=== PATIENT | male | born 1970 | race Caucasian/White ===

== ENCOUNTER 2020-04-09 15:11 | Outpatient (REF) | payer OTHER, SELFPAY | END 2020-04-09 15:12 | disposition home or self-care (01) | LOC: HO.LNP 15:11 | PROVIDERS: Visit Provider Internal Medicine | DX: Z20.828 Contact with and (suspected) exposure to other viral communicable diseases (principal) | CPT/HCPCS: U0003 ==

== ENCOUNTER 2020-06-11 10:03 | Day surgery (SDC) | payer OTHER, SELFPAY ==
[2020-06-08 09:46] VITALS: BMI 31.4
--- NOTE | 2020-06-09 14:03 | HO.ANESPROP2 ---
Documented by User: Conchis Brandt 06/09/20 14:04 HPI - Anesthesia Eval Consult details Narrative: 49yo M for Colonoscopy PMFSH Past Medical History Medical History Elevated cholesterol Hx of skin cancer, basal cell Lab test negative for COVID-19 virus Surgical History Surgical History Hx of arthroscopy of right knee Hx of vasectomy Social History Social History Are you a primary child daycare worker to a significant other at home: No Do you presently have visiting nurse or other home services: No Alcohol intake: never Smoking Status: Never smoker Use of substances other than those prescribed or required for medical reasons: No Have you been hit, kicked, punched, or otherwise hurt by someone within the past year? If so, by whom?: No Advance Directives Information Provided: No Recently lost weight without trying: No Meds Allergies Allergy/AdvReac Type Severity Reaction Status Date / Time No Known Allergies Allergy Verified 06/08/20 09:50 Home Medications Medication Instructions Recorded Confirmed Type simvastatin 1 tab PO DAILY 06/08/20 06/08/20 History Exam Exam Date and Time: June 09, 2020 1403 Height,Weight and Vital Signs: Height 5 ft 9 in Weight 96.615 kg Assessment and Plan Assessment Anesthesia Assessment: Chart Reviewed Documented by User: Alyssa Resendez 06/11/20 10:50 [facility] Past Medical History Medical History Elevated cholesterol Hx of skin cancer, basal cell Lab test negative for COVID-19 virus Family History Family history of problems with anesthesia: No Surgical History Surgical History Hx of arthroscopy of right knee Hx of vasectomy History of Problems with Anesthesia: No Social History Social History Are you a primary child daycare worker to a significant other at home: No Do you presently have visiting nurse or other home services: No Alcohol intake: never Smoking Status: Never smoker Use of substances other than those prescribed or required for medical reasons: No Have you been hit, kicked, punched, or otherwise hurt by someone within the past year? If so, by whom?: No Advance Directives Information Provided: No Recently lost weight without trying: No Meds Allergies Allergy/AdvReac Type Severity Reaction Status Date / Time No Known Allergies Allergy Verified 06/08/20 09:50 Home Medications Medication Instructions Recorded Confirmed Type simvastatin 1 tab PO DAILY 06/08/20 06/08/20 History Exam Height,Weight and Vital Signs: Vital Signs Temp Pulse Resp BP Pulse Ox 06/11/20 10:36 97.6 F 61 18 128/84 96 Airway Mallampati Class: I TM Dist: >3cm Neck ROM: Full Partial: Upper and Lower Heart: RRR Lungs: CTAB Assessment and Plan Assessment Anesthesia Assessment: Anesthesia Plan Discussed and Chart Reviewed Final Anesthetic Review NPO: Yes ASA Class: II Final Preanesthetic Review: No Changes in Pt Med Stat, Meds/Allgs Chart Reviewed, Consent Obtained/Reviewed and Anes Risks/Benef Reviewed Patient Risk: Low Procedure Risk: Low Assessment/Block/Sedation in SS: Assess/Block/Sedation-SS Anesthetic Plan Anesthetic Plan: MAC: Disposition: Standard PACU
[2020-06-11 10:36] VITALS: BP 128/84; PULSE 61; RESP 18; TEMP 36.4; O2SAT 96
[2020-06-11] MEDS: Lactated Ringers 1,000 ML 100 ML IVCONT (10:54)
--- NOTE | 2020-06-11 10:56 | MHC.SHP ---
Pre-Procedural Eval Section A The patient is an INPATIENT: No Changes since office visit: No Cold of Flu in the past 2 weeks, No New Medical Problems, No Changes in Medication and No Patient answered all questions The History & Physical has been completed within 30 days and I have reviewed it.: Yes Section B Chief Complaint: screening Allergies: Allergies Allergy/AdvReac Type Severity Reaction Status Date / Time No Known Allergies Allergy Verified 06/08/20 09:50 Plan I have reviewed the history and physical and performed a pertinent physical examination on my patient. No changes have occurred unless specified.
--- NOTE | 2020-06-11 11:17 | PM.OP ---
Brief Operative Note Date of Service: 06/11/20 Pre-op diagnosis: screening Post-op diagnosis: same Procedure: colonoscopy Surgeon: Norman Hankins Anesthesia: MAC Estimated blood loss (mL): 0 Pathology: none sent Condition: stable Disposition: PACU
[2020-06-11 11:18] VITALS: BP 110/60; PULSE 64; RESP 16; TEMP 36.1; O2SAT 96
[2020-06-11 11:35] VITALS: BP 109/65; PULSE 64; RESP 16; TEMP 36.1; O2SAT 96
--- NOTE | 2020-06-11 11:39 | OP_ITS ---
cc: Cristian Pierson MD~ SURGEON: Norman Hankins MD INDICATIONS: Colon cancer screening. PREOPERATIVE DIAGNOSIS: POSTOPERATIVE DIAGNOSIS: PROCEDURE PERFORMED: Colonoscopy to the terminal ileum. ESTIMATED BLOOD LOSS: COMPLICATIONS: ANESTHESIA: Medications, monitored anesthesia care. ASSISTANTS: SPECIMENS: DESCRIPTION OF PROCEDURE: History and physical was performed. The risks and benefits of the procedure were explained to the patient. Informed consent was obtained. The patient was placed in left lateral decubitus position. A digital rectal exam was performed and was found to be normal. The Olympus pediatric video colonoscope was introduced into the rectum and advanced to the cecum without difficulty. The cecum was identified by transillumination, palpation, identification of ileocecal valve. Examination was performed. The scope was removed. He tolerated the procedure well and was taken to the recovery area in stable condition. FINDINGS: The terminal ileum was examined and it appeared normal. Visualized colonic mucosa was normal. Quality of prep was good. There was minimal sigmoid diverticulosis. Retroflexed examination showed hypertrophic anal papillae. The quality of prep was good. IMPRESSION: Normal colonoscopy. RECOMMENDATIONS: 1. Follow up as needed. 2. Repeat colonoscopy is recommended in 10 years for average risk individuals. MD JEN Bledsoe/JOMAR / [id number] MTDD
--- NOTE | 2020-06-11 12:27 | HO.POSTANES ---
Post Anesthesia Evaluation Post Anesthesia Evaluation Vital Signs: Vital Signs Temp Pulse Resp BP Pulse Ox 06/11/20 11:35 97 F 64 16 109/65 96 06/11/20 11:18 97 F 64 16 110/60 96 06/11/20 10:36 97.6 F 61 18 128/84 96 Anesthesia: Monitored Mental Status: Awake Pain Control: Satisfactory Nausea/Vomiting: None Hydration: Adequate Anesthesia-Related Issues: No Anes. Related Issues
== END 2020-06-11 12:24 | disposition home or self-care (01) ==
PROVIDERS: PCP Internal Medicine; Visit Provider Internal Medicine Gastroenterology
PROC: 0DJD8ZZ Inspection of Lower Intestinal Tract, Via Natural or Artificial Opening Endoscopic (ICD-10-PCS; CPT 45378; principal; 2020-06-11 11:10)
DX: Z12.11 Encounter for screening for malignant neoplasm of colon (principal)
CPT/HCPCS: 45378

== ENCOUNTER 2021-11-25 10:55 | Outpatient (REF) | payer OTHER, SELFPAY ==
--- NOTE | ~2021-11-25 | XR_ITS ---
EXAMINATION: XR CHEST CLINICAL INFORMATION: SOB COMPARISON: None TECHNIQUE: 2 views of the chest were obtained. FINDINGS: No significant abnormality is noted involving the heart, lungs, mediastinum, bony thorax or soft tissues. XR/XR chest 2V IMPRESSION: Unremarkable chest exam
[2021-11-25 13:35] LABS: MANUAL DIFF FLAG NO
[2021-11-25 13:41] LABS: Basophils Percent Auto 0.3 % (0-2); Eosinophils Percent Auto 0.4 % (0-4); Hemoglobin 14.4 g/dl (14.0-18.0); Imm Gran Abs Auto 0.02 X10*3/uL (0.00-0.03); Imm Gran Pct Auto 0.3 % (0.0-0.4); Lymphocytes Absolute Auto 1.4 X10*3/uL (1.2-4.9); Lymphocytes Percent Auto 19.1 % (20-40); Mean Corpuscular HGB Conc 34.3 g/dl (31.0-36.0); Mean Corpuscular Hemoglobin 31.1 pg (27.0-33.0); Mean Corpuscular Volume 90.7 fL (80.0-98.0); Mean Platelet Volume 9.4 fL (9.4-12.4); Monocytes Percent Auto 13.8 % (2-11); Neutrophils Percent Auto 66.1 % (45-73); Platelet Count 190 X10*3/uL (160-400); Red Blood Count 4.63 X10*6/uL (4.60-5.80); Red Cell Distribution Width 12.9 % (11.0-16.0); White Blood Count 7.5 X10*3/uL (4.8-10.8)
[2021-11-25 13:52] LABS: Alanine Aminotransferase 35 U/L (0-40); Albumin Level 4.5 g/dL (3.5-5.0); Alkaline Phosphatase 70 U/L (39-117); Anion Gap 12 (12-20); Aspartate Amino Transferase 23 U/L (5-37); Bilirubin Total 0.7 mg/dL (0.0-1.0); Blood Urea Nitrogen 15 mg/dL (9-16); C Reactive Protein 0.91 mg/dL (< or = 0.50); Carbon Dioxide 25 mmol/L (22-29); Chloride 105 mmol/L (96-108); Estimated Glomerular Filt Rate > 60; Glucose Random 94 mg/dL (60-115); Potassium 4.2 mmol/L (3.3-5.1); Sodium 138 mmol/L (135-145); Total Protein 7.2 g/dL (6.5-8.0)
== END 2021-11-25 10:56 | disposition home or self-care (01) ==
LOC: HO.10HDL 10:55
PROVIDERS: Visit Provider Internal Medicine
DX: R06.02 Shortness of breath (principal); E78.00 Pure hypercholesterolemia, unspecified; Z86.16 Personal history of COVID-19
CPT/HCPCS: 36415; 71046; 80053; 82550; 85025; 86140

== ENCOUNTER 2021-11-29 06:47 | Outpatient (REF) | payer OTHER, SELFPAY ==
[2021-11-29 07:38] LABS: D Dimer High Sensitivity 237 NG/ML
== END 2021-11-29 06:48 | disposition home or self-care (01) ==
LOC: HO.LAB 06:47
PROVIDERS: PCP Internal Medicine; Visit Provider Internal Medicine
DX: R06.02 Shortness of breath (principal)
CPT/HCPCS: 36415; 85379

== ENCOUNTER 2021-12-02 13:48 | Outpatient (REF) | payer OTHER, SELFPAY ==
--- NOTE | 2021-12-02 | PFT_ITS ---
FLOWS: FEV1 of 92% of predicted at 3.42 L. FVC 85% of predicted at 4.05 L. FEV1 to FVC ratio of 0.84. No bronchodilator response. LUNG VOLUMES: Total lung capacity 83% of predicted at 5.57 L. Residual volume 74% of predicted at 1.49 L. Slow vital capacity 87% of predicted at 4.08 L. Expiratory reserve volume 34% of predicted at 0.48 L. Diffusion capacity is normal. IMPRESSION: No obstructive or restrictive ventilatory defect. Decreased expiratory reserve volume suggests extrathoracic restriction likely secondary to abdominal obesity. Fred Mcginnis MD AP/MODL / [id number]
== END 2021-12-02 13:49 | disposition home or self-care (01) ==
LOC: HO.RESP 13:48
PROVIDERS: PCP Internal Medicine; Visit Provider Internal Medicine
DX: R06.02 Shortness of breath (principal)
CPT/HCPCS: 94060; 94727; 94729

== ENCOUNTER → 2022-01-16 09:16 | Outpatient (REF) | payer OTHER, SELFPAY ==
--- NOTE | 2022-01-16 09:30 | CA_ITS ---
Transthoracic Echocardiogram Patient (Last, First, Middle): Casa Velazquez R Gender: Male Date of : 1970 Age: 51 Procedure Date: 01/16/2022 Procedure Type: Transthoracic Echocardiogram Location: OP Height: 172.72 cm Weight: 94.8 kg BSA: 2.08 m2 Heart Rate: 56 bpm BP: 120 / 80 mmHg Marketing And Development Coordinator: RICARDO Referring MD: Gurwinder Pierson MD Foam Rubber Molder: Raffi Pulido MD Symptoms: R06.02 SHORTNESS OF BREATH Study Quality: Adequate ECG Rhythm: Bradycardia Conclusions: - Essentially normal study Findings Left Ventricle Normal left ventricular size, thickness, and systolic function. The visually estimated ejection fraction is between 60-65%. Spectral Doppler is indicative of a normal filling pattern. Right Ventricle Normal right ventricular cavity size and systolic function. Atria Both atria are normal in size. There is lipomatous hypertrophy of the interatrial septum. Aortic Valve Normal aortic valve structure and function. There is no aortic valve stenosis. There is no aortic valve regurgitation. Mitral Valve Normal mitral valve structure and function. There is no mitral valve regurgitation. There is no mitral valve stenosis. Pulmonic Valve The pulmonic valve is likely normal. Tricuspid Valve Normal tricuspid valve structure. There is trace tricuspid valve regurgitation. Normal right atrial pressure. Great Vessels All visible segments of the aorta are normal in size. The pulmonary artery was not well visualized. Venous The inferior vena cava is normal in size and collapses greater than 50% with inspiration. Pericardium/Pleural There is no evidence of pericardial effusion. Measurements 2D Linear Measurements IVSd: 0.98 0.6-0.9/0.6-1.0 cm LVIDd: 4.65 3.9-5.3/4.2-5.9 cm LVIDd Index: 2.24 2.4-3.2/2.2-3.1 cm/m2 LVIDs: 3.11 2.0-3.6 cm LVPWd: 1.07 0.7-1.1 cm LA Diam: 3.60 2.7-3.8/3.0-4.0 cm LAIDs Index: 1.73 1.5-2.3 cm/m2 LV Mass: 207.67 67-162/88-224 g LV Mass Index: 99.84 43-95/49-115 g/m2 LVOT Diam: 2.10 3.0+(-)1.3 cm 2D Systolic Function EF 4C: 56.70 >55% EF 2C: 55.60 >55% Mitral Valve MV Pk E: 0.77 MV PK A: 0.63 MV Decel Time: 241.00 E/A: 1.20 E'Lateral: 10.60 E'Medial: 8.16 E/E' Med: 9.40 E/E' Lat: 7.30 PHT: 71.00 MVA PHT: 3.10 Decel Pleasants: 3.20 Aortic Valve AoV Pk Yo: 1.14 AoV Mn Yo: 0.77 AoV VTI: 0.26 AoV Pk Grad: 5.00 Aov Mn Grad: 3.00 LALITO Cont.VTI: 2.40 LVOT LVOT Pk Yo: 0.88 LVOT Mn Yo: 0.58 LVOT VTI: 0.18 LVOT Pk Grad: 3.00 LVOT Mn Grad: 2.00 LVOT Diam: 2.10 LVOT Area: 3.46 Diastolic Function MV Pk E: 0.77 MV Pk A: 0.63 E/A: 1.20 E'Medial: 8.16 E/E' Med: 9.40 E' Laterial: 10.60 E/E' Lat: 7.30 Right Ventricle TAPSE (mm): 21.70 TVS' Yo: 12.90 Tricuspid Valve RA Press: 3.00 Great Vessels Aorta Sinus of Valsalva: 3.10 2.0-3.5 cm Ao Asc: 2.80 2.1-3.4 cm Pulmonary Valve PV Pk Yo: 1.03 Peak PV Grad: 4.00 Updated in Other Vendor System with Status of Final Raffi Pulido MD electronically signed on 01/16/2022 3:07:27 PM with status of Final
== END ==
LOC: HO.CARD 09:16
PROVIDERS: PCP Internal Medicine; Visit Provider Internal Medicine
DX: R06.02 Shortness of breath (principal)
CPT/HCPCS: 93306

== ENCOUNTER 2024-02-18 10:53 | Outpatient (AMB) | payer OTHER, SELFPAY ==
--- NOTE | 2024-02-18 10:54 | MHC.OFFWIV ---
Intake Vital Signs 02/18/24 10:55 Height 5 ft 8 in Weight 225 lb BMI 34.2 BP 124/80 Blood Pressure Location Rt brachial Position Sitting Pulse 69 Pulse Source Pulse Oximeter Pulse Oximetry (%) 97 Oxygen Delivery Method Room Air Intake Visit Reasons: EP-rt ear block and irritated Intake Note: Patient here for right ear pain that has been present for a few days and yesterday the pain worsened and feels blocked. Patient Tobacco Use Status: Never used Tobacco Allergies No Known Allergies Allergy (Verified 02/18/24 10:56) Do you need a note to return to daycare/school/sports/work: No HPI EP-rt ear block and irritated HPI Details This note is constructed using voice recognition software. While every effort has been made to ensure accuracy, drapery maker errors may have been included. The patient is a 53 year old male who presents to the clinic today with right-sided ear pain for the past several days. Notes a chronic history ear infections, including medial and external, as well as cerumen impaction. He has been treating this for many years, and does over the home irrigation of the ear. He went to perform an irrigation of the ear, noted that it was a bit more painful than normal. He denies fever, chills, cough, shortness of breath, or other URI symptoms. [facility] Medical History Elevated cholesterol Hx of skin cancer, basal cell Lab test negative for COVID-19 virus Surgical History Hx of arthroscopy of right knee Hx of vasectomy Social History Are you a primary progressive care unit registered nurse to a significant other at home: No Do you presently have visiting nurse or other home services: No Alcohol intake: never Patient Tobacco Use Status: Never used Tobacco Review of Systems Const All systems reviewed & are unremarkable except as noted in HPI and below Physical Exam Vital Signs: Last Vital Signs Pulse 69 02/18/24 10:55 BP 124/80 02/18/24 10:55 Pulse Ox 97 02/18/24 10:55 Oxygen Delivery Method Room Air 02/18/24 10:55 BMI result Body Mass Index 34.2 Const General: cooperative, healthy appearing, comfortable and no acute distress Orientation/consciousness: patient oriented x3 HEENT Other: External ear canal on right with minimal erythema and inflammation. Head: Yes normal to inspection, Yes No palpable skull fracture present and Yes normocephalic Ears: hearing grossly normal bilaterally, TM's normal bilaterally and mastoids normal (no TTP) bilaterally General nose exam: Normal external nose present Face and sinus: Yes normal facial exam Mouth: Normal oral and palatal mucosa present Teeth and gingiva: dentition normal Throat: Yes posterior oropharynx normal Eyes General: appearance normal, both eyes and all related structures Neck Neck: Yes normal visual inspection, Yes full ROM, Yes no lymphadenopathy, Yes no meningeal signs, Yes trachea midline and Yes supple Resp Effort & Inspection: normal respiratory effort and able to speak in complete sentences Skin General skin exam: no rashes or lesions noted Neuro General: patient oriented x3 and no meningeal signs Assessment & Plan Assessment & Plan (1) Otitis externa: Code(s): H60.90 - Unspecified otitis externa, unspecified ear Qualifiers: Otitis externa type: swimmer's ear Chronicity: acute Laterality: right Qualified Code(s): H60.331 - Swimmer's ear, right ear Plan: Drops sent to requested pharmacy. Advised [id number] treatment for pain management. Follow-up as needed with worsening or failure to resolve. Plan See above for full details and plan. Medications: New hydrocortisone-acetic acid 1-2 % 4 drps otic (ear) right TID 7 days 10 mL 0RF Coding Level of Care Code Est Pt Level 3 (77645) Diagnoses Acute swimmer's ear of right side H60.331 Otitis externa type: swimmer's ear Chronicity: acute Laterality: right
[2024-02-18 10:55] VITALS: BP 124/80; PULSE 69; O2SAT 97; BMI 34.2
== END 2024-02-18 11:06 | disposition home or self-care (01) ==
PROVIDERS: PCP Internal Medicine; Visit Provider Registered Nurse
DX: H60.331 Swimmer's ear, right ear (principal)

== ENCOUNTER → 2024-02-18 10:53 | Outpatient (BNVA) | payer OTHER, SELFPAY | PROVIDERS: PCP Internal Medicine; Visit Provider Registered Nurse ==

== ENCOUNTER 2024-07-16 09:04 | Outpatient (REF) | payer OTHER, SELFPAY ==
--- OUTSIDE RECORDS SUMMARY | 2024-07-16 09:39 | XMS_ITS | Clinical Summary ---
Author Organization [facility] Address [address] [place] [address] Care Team Providers Care Fuse Maker Name Role Phone Unavailable Primary Care Provider Unavailabl e Allergies No known active allergies Medications No known medications Social History Tobacco Use Types Packs/Day Years Used Date Smoking Tobacco: Never Assessed Sex and Gender Information Value Date Recorded Sex Assigned at Not on file Gender Identity Not on file Sexual Orientation Not on file Last Filed Vital Signs Vital Sign Reading Time Taken Comments Blood Pressure - - Pulse 61 01/27/2021 10:49 AM EDT Temperature 36.6 ??C (97.8 ??F) 01/27/2021 10:49 AM E DT Respiratory Rate - - Oxygen Saturation 97% 01/27/2021 10:49 AM EDT Inhaled Oxygen Concentration - - Weight 93.4 kg (206 lb) 01/27/2021 10:49 AM EDT Height 175.3 cm (5' 9 ) 01/27/2021 10:49 AM EDT Body Mass Index 30.42 01/27/2021 10:49 AM EDT Plan of Treatment Health Maintenance Due Date Last Done Comments Hepatitis C Virus Screening 1970 HIV Screening 1982 DTaP/Tdap/Td Vaccines (1 - Tdap) 1988 Hepatitis B Vaccines (1 of 3 - 19+ 3-dose series) 1988 Colonoscopy 2014 Pneumococcal Vaccines 50+ (1 of 1 - PCV) 11/21/2019 Zoster (Shingles) Vaccine (1 of 2) 11/21/2019 Influenza Vaccine 12/06/2023 COVID-19 Vaccine (3 - 2023-2 5 season) 2024 08/13/2020, 07/16/2020 Pneumococcal Vaccine: Pediatric (0-5 Years) and At-Risk Patients (6 to 49 Years) Aged Out No longer eligible b ased on patient's age to complete this topic
--- OUTSIDE RECORDS SUMMARY | 2024-07-16 09:39 | XMS_ITS | Patient Health Record ---
Author Organization [facility] Address [address] [place] [address] Care Team Providers Care Lap Hand Tool Name Role Phone Gurwinder Pierson MD Primary Care Provider Unavaila Norman Lara Jr Unavailable [phone] Reason For Referral No Information Medications Medication SIG (Take, Route, Frequency, Duration) Notes Start Date End Date Status Simvastatin 40 MG Orally Ac tive Advil Active MiraLax (colon prep) 8.3 ounce ((238) grams mixed with Gatorade or Crystal Light orally begin at 5:00 p.m. the day before the procedure for 1 day 05/31/2020 Active Immunizations Vaccine Route Administration Date Status Comme nts Influenza Unknown 04/21/2020 Administered Social History Tobacco Use: Social History Observation Description Date Details (start date - stop date) Never Smoker NA - NA Tobacco Use/Smoking Question Answer Notes Patient is a nonsmoker Alcohol Screen Question Answer Notes Did you have a drink containing alcohol in the p ast year? 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) use of non-steroidal anti-inflammatorie s (NSAID) (Z79.1) Active confirmed Problem 403290618 Encounter for other preprocedural examination (Z01.818) Active confirmed Plan Of Treatment Future Test Test Name Order Date COLONOSCOPY 05/31/2020 Insurance Providers Payer Name Payer Address Payer Phone Subscriber Number Group Number Insured Name Patient Relationship to Insured Coverage Start Date Coverage End Date [employer] [address] [place] [address] [id number] HERMELINDO JIMÉNEZ Self - patient is the insured Medical (General) History Medical History History ICD Code hyperlipidemia Surgical History Surgery Date(Month/Year) vasectomy 1998
[2024-07-16 10:51] LABS: MANUAL DIFF FLAG NO
[2024-07-16 11:07] LABS: Basophils Percent Auto 0.3 % (0-2); Eosinophils Absolute Auto 0.1 X10*3/uL (0.0-0.4); Eosinophils Percent Auto 0.9 % (0-4); Hematocrit 44.9 % (42.0-52.0); Hemoglobin 15.5 g/dl (14.0-18.0); Imm Gran Abs Auto 0.02 X10*3/uL (0.00-0.03); Imm Gran Pct Auto 0.3 % (0.0-0.4); Lymphocytes Absolute Auto 2.1 X10*3/uL (1.2-4.9); Lymphocytes Percent Auto 32.3 % (20-40); Mean Corpuscular HGB Conc 34.5 g/dl (31.0-36.0); Mean Corpuscular Hemoglobin 31.3 pg (27.0-33.0); Mean Corpuscular Volume 90.7 fL (80.0-98.0); Mean Platelet Volume 9.4 fL (9.4-12.4); Monocytes Absolute Auto 0.7 X10*3/uL (0.1-1.2); Monocytes Percent Auto 10.6 % (2-11); Neutrophils Absolute Auto 3.6 x10*3/uL (2.0-8.3); Neutrophils Percent Auto 55.6 % (45-73); Platelet Count 232 X10*3/uL (160-400); Red Blood Count 4.95 X10*6/uL (4.60-5.80); White Blood Count 6.4 X10*3/uL (4.8-10.8)
[2024-07-16 11:24] LABS: Alanine Aminotransferase 53 U/L (0-40); Albumin Level 4.4 g/dL (3.5-5.0); Alkaline Phosphatase 61 U/L (39-117); Anion Gap 12 (12-20); Aspartate Amino Transferase 30 U/L (5-37); Bilirubin Total 0.5 mg/dL (0.0-1.0); Blood Urea Nitrogen 15 mg/dL (9-16); Calcium 9.2 mg/dL (8.4-10.2); Carbon Dioxide 25 mmol/L (22-29); Chloride 108 mmol/L (96-108); Cholesterol 231 mg/dL (<200); Estimated Glomerular Filt Rate > 60; Glucose Fasting 100 mg/dL (60-99); HDL Cholesterol 32 mg/dL (>40); LDL Cholesterol Calculated 148 mg/dL (<100); Potassium 4.1 mmol/L (3.3-5.1); Sodium 141 mmol/L (135-145); Total Protein 7.8 g/dL (6.5-8.0); Triglycerides 255 mg/dL (<150)
[2024-07-16 11:40] LABS: Prostate Specific Antigen Scr 0.74 ng/mL (<0.05-4.0)
[2024-07-16 13:10] LABS: Appearance Urine Turbid; Color Urine Yellow; Glucose Urine UA Negative (Negative); Leukocyte Esterase Urine Negative (Negative); Nitrite Urine Negative (Negative); PH 5.5 (5.0-9.0); Urine Blood Negative (Negative); Urine Ketones Negative (Negative); Urine Protein Negative (Neg-Trace)
== END 2024-07-16 09:05 | disposition home or self-care (01) ==
LOC: HO.10HDL 09:04
PROVIDERS: Visit Provider Internal Medicine
DX: E78.00 Pure hypercholesterolemia, unspecified (principal); Z12.5 Encounter for screening for malignant neoplasm of prostate; M54.50 Low back pain, unspecified
CPT/HCPCS: 36415; 80053; 80061; 81003; 84153; 85025

== ENCOUNTER 2025-01-30 08:12 | Outpatient (AMB) | payer OTHER, SELFPAY ==
[2025-01-30 07:50] VITALS: BP 122/74; PULSE 62; TEMP 36.4; O2SAT 97; BMI 34.1
--- NOTE | 2025-01-30 07:50 | MHC.PC.OV ---
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 Accompanied by: Self / Same As Patient Allergies No Known Allergies Allergy (Verified 01/30/25 07:50) Medication List - Last Reconciled 01/30/25 by JERRELL Marques cyclobenzaprine 10 mg PO BEDTIME PRN naproxen 500 mg PO BID PRN simvastatin 40 mg PO DAILY Tobacco use date assessed: 01/30/25 Dental Screening Dental Screen Date: 01/30/25 Did you have a dental visit in the last 12 months?: Yes Did you have a dental problem in the last 6 months where you did not have access to dental care?: No HPI HPI Comments History of Present Illness Details 54-year-old male with history of hyperlipidemia, basal cell carcinoma presents to the office today for annual physical exam and to establish care. Lives with and daughter (27). 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 He runs 6 days per week about 2-4 miles at a time. Intermittently following a healthy diet. Reports social alcohol use. No history of cigarette smoking. No drugs including marijuana. HLD- simvastatin 40 mg nightly, but has been without this for 2 weeks due to pharmacy supply. Last LDL 148. Basal cell carcinoma- 4 -5 years ago. [facility] has notbeen back since [place]: Low back pain-intermittent but longstanding. Questions injury while exercising years ago. Occurs about twice yearly and uses cyclobenzaprine as needed as well as heat and naproxen. He also does stretches at home Plantar fasciitis/pain ball of right foot Health maintenance: Last colonoscopy 2020 with 10 year follow-up advised Dentist-going once yearly Eye exam-last eye exam several years ago. Wears reading glasses only Skin exams as above. Does wear sunscreen Reviewed last medical, family, surgical, social history ROS: General: No fevers, malaise, unintentional weight loss HEENT: No blurred vision, diplopia. No sore throat, nasal congestion, rhinorrhea, sinus pain, ear pain. No hearing loss Neck - no adenopathy Cardiovascular: No chest pain, palpitations, or leg edema Respiratory: No shortness of breath, wheezing, cough GI: No dysphagia, odynophagia, globus sensation. No abdominal pain, nausea, vomiting, diarrhea, constipation, melena, hematochezia : No dysuria, hematuria, increased urinary frequency, decreased urinary output. No testicular swelling or pain. No penile discharge MSK: No myalgia, arthralgias. See HPI Neuro: No headaches, weakness, paresthesias Psych: no depression/anxiery. No AH/VH. No SI/HI Skin: No rashes or lesions EXAM: Constitutional - Awake and Alert, No apparent distress Eyes - PERRLA, EOMI. Anicteric Ears - external ears normal, canals clear, TMs intact and pearly chowdhury with good cone of light Nose- septum midline, nares clear, no sinus tenderness Mouth/throat- mucosa moist, tongue and uvula midline, no erythema/edema or tonsillar adenopathy. Neck-trachea midline, thyroid symmetric without palpable nodules, no adenopathy Cardiovascular - S1S2, RRR, No edema Respiratory - Normal lung expansion, Normal respiratory effort, No respiratory distress, CTA bilaterally Gastrointestinal - NT / ND; +BS; No rebound or guarding - No CVA tenderness Extremities - no calf tenderness bilaterally, no swelling Musculoskeletal - Normal inspection, normal ROM. Midline tenderness to palpation in the bilateral paraspinal muscles at the level of about L2-S1. TTP with small palpable mass plantar forefoot 2nd MTP Skin - Warm/Dry, no concerning lesions Neurological - Alert & oriented x3, CN II-XII in tact, 5/5 strength BUE and BLE, 2+ patellar reflexes, sensation intact Psychological - Appropriate affect PFSH Medical History HLD (hyperlipidemia) Hx of skin cancer, basal cell Lab test negative for COVID-19 virus Elevated cholesterol Surgical History Hx of vasectomy Hx of arthroscopy of right knee Family History Mother Liver cancer Father CAD (coronary artery disease) Paternal Grandfather CAD (coronary artery disease) Social History Housing: House Are you a primary spiritual care coordinator to a significant other at home: No Do you presently have visiting nurse or other home services: No Alcohol intake: never Patient Tobacco Use Status: Never used Tobacco e-Cigarette/Vaping Use: Never Used service: No Current occupational status: employed Cognitive needs: No Hearing needs: No Vision needs: Yes (Reading glasses) Questionnaire PHQ-9 Over the last 2 weeks, how often have you been bothered by any of the following problems? 1. Little interest or pleasure in doing things: not at all 2. Feeling down, depressed, or hopeless: not at all 3. Trouble falling or staying asleep, or sleeping too much: not at all 4. Feeling tired or having little energy: not at all 5. Poor appetite or overeating: not at all 6. Feeling bad about yourself - or that you are a failure or have let yourself or your family down: not at all 7. Trouble concentrating on things, such as reading the newspaper or watching television: not at all 8. Moving or speaking so slowly that other people could have noticed. Or the opposite - being so fidgety or restless that you have been moving around a lot more than usual: not at all 9. Thoughts that you would be better off or of hurting yourself in some way: not at all Total score: 0 Depression Screening Interpretation: Negative Depression Screening Done: Yes 43912 - PHQ-9 Billing: Yes Source: Developed by Drs. Raul Chavis, Lety Calabrese, Olaf Bran and colleagues, with an educational missael from [employer]. Thrive Questionnaire Date Thrive assessed: 01/30/25 I am a: Patient What is your living situation today?: I have a steady place to live Within the past 12 months, did the food you bought not last and you didn't have the money to get more?: Never true Within the past 12 months, did you worry whether your food would run out before you got money to buy more?: Never true Do you have trouble paying for medicines?: No Do you have trouble getting transportation to medical appointments?: No Do you have trouble paying your heating and electricity bill?: No Do you have trouble taking care of your child, family member or friend?: No Do you have trouble with day-to-day activities such as bathing, preparing meals, shopping, managing finances, etc.?: No Are you currently unemployed and looking for a job?: No Are you interested in more education?: No THRIVE Score: 0 AUDIT C Alcohol Use Questionnaire (AUDIT-C) 1. How often do you have a drink containing alcohol?: Monthly or less 2. How many drinks containing alcohol do you have on a typical day when you are drinking?: 1 or 2 3. How often do you have six or more drinks on one occasion?: Less than monthly Total Score: 2 BOB-7 AMB Questionnaire BOB-7 Date BOB - 7 assessed: 01/30/25 Feeling nervous, anxious, or on edge: 0 = Not at all Not being able to stop or control worryin = Not at all Worrying too much about different things: 0 = Not at all Trouble relaxin = Not at all Being so restless that it is hard to sit still: 0 = Not at all Becoming easily annoyed or irritable: 0 = Not at all Feeling afraid as if something awful might happen: 0 = Not at all Total BOB-7 score (0-4 normal; 5-9 mild; 10-14 moderate; 15-21 severe): 0 Source: Developed by Drs. Raul Chavis, Lety Calabrese, Olaf Bran and colleagues, with an educational missael from [employer]. BOB-7 Assessment Billing BBO-7 Assessment Tool: BOB-7 Assessment 24650 Physical exam (Primary Care) Vital Signs: Last Vital Signs Temp 97.6 F 01/30/25 07:50 Pulse 62 01/30/25 07:50 BP 122/74 01/30/25 07:50 Pulse Ox 97 01/30/25 07:50 Oxygen Delivery Method Room Air 01/30/25 07:50 BMI result Body Mass Index 34.1 Tobacco/Smoking Status: Tobacco use Status Tobacco use date assessed 01/30/25 01/30/25 07:51 Patient Tobacco Use Status Never used Tobacco 01/30/25 07:51 e-Cigarette/Vaping Use Never Used 01/30/25 07:51 PHQ-9: PHQ-9 Score PHQ-9: Total score 0 01/30/25 08:57 Depression Screening Interpretation: Negative Thrive Assessment: Date of Thrive Assessment Date Thrive assessed 01/30/25 01/30/25 07:51 Coding Level of Care Code New Pt Prev Care 40-64y(71592) Diagnoses Encounter for routine history and physical examination Z00.00 HLD (hyperlipidemia) E78.5 Mass of right foot R22.41 Acute low back pain M54.50 Additional Codes BOB-7 Assessment Billing - BOB-7 Assessment Tool: BOB-7 Assessment 83840 ([id number]) PHQ-9 - 89848 - PHQ-9 Billing: Yes ([id number]) Assessment & Plan Assessment & Plan (1) Encounter for routine history and physical examination: Code(s): Z00.00 - Encounter for general adult medical examination without abnormal findings Plan: 54-year-old male presenting for annual physical exam. Plan as below (2) HLD (hyperlipidemia): Code(s): E78.5 - Hyperlipidemia, unspecified Category: Medical Plan: Recheck lipid panel in 2 weeks. Resume simvastatin 40 mg daily (3) Mass of right foot: Code(s): R22.41 - Localized swelling, mass and lump, right lower limb Category: Medical Plan: Possibly neuroma. X-ray of the right foot is ordered. Referred to Podiatry. Continue with arch support. Ibuprofen as needed (4) Acute low back pain: Code(s): M54.50 - Low back pain, unspecified Category: Medical Plan: Naproxen and cyclobenzaprine as needed. Continue with heat/ice. Can also use topical analgesics. Gentle [id number] exercises Plan Reviewed most recent labs. Advised to have labs rechecked in 2 weeks Continue with screening colonoscopies and PSA Continue following for annual skin exams and use sun protection Annual eye exams Wear seat belt in car Recommend regular exercise and healthy diet Follow up in 1 year for annual exam Orders: Orders Basic Metabolic Panel Today Z00.00 - Encounter for general adult medical examination without abnormal findings Lipid Panel Today Z00.00 - Encounter for general adult medical examination without abnormal findings XR foot RT min 3V Today M79.671 - Pain in right foot, R22.41 - Localized swelling, mass and lump, right lower limb, Z00.00 - Encounter for general adult medical examination without abnormal findings Referrals Podiatry Referral M79.671 - Pain in right foot, R22.41 - Localized swelling, mass and lump, right lower limb Medications: New cyclobenzaprine 10 mg PO BEDTIME PRN 30 tabs 0RF muscle spasm naproxen 500 mg PO BID PRN 60 tabs 0RF pain
--- OUTSIDE RECORDS SUMMARY | 2025-01-30 08:22 | XMS_ITS | Patient Health Record ---
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) use of non-steroidal anti-inflammatorie s (NSAID) (Z79.1) Active confirmed Problem 172000250 Encounter for other preprocedural examination (Z01.818) Active confirmed Plan Of Treatment Future Test Test Name Order Date COLONOSCOPY 05/31/2020 Insurance Providers Payer Name Payer Address Payer Phone Subscriber Number Group Number Insured Name Patient Relationship to Insured Coverage Start Date Coverage End Date [employer] [address] [place], [place] [address] [id number] HERMELINDO JIMÉNEZ Self - patient is the insured Medical (General) History Medical History History ICD Code hyperlipidemia Surgical History Surgery Date(Month/Year) vasectomy 1998
--- OUTSIDE RECORDS SUMMARY | 2025-01-30 08:22 | XMS_ITS | Patient Health Record ---
Author Organization [facility] Address [address] [place] [address] Care Team Providers Care Rail Director Name Role Phone Gurwinder Pierson MD Primary Care Provider Gabriel Uribe Unavailable [phone] Reason For Referral No Information Medications Medication SIG (Take, Route, Fr equency, Duration) Notes Start Date End Date Status Simvastatin 40 MG Orally Ac tive Social History Tobacco Use: Social History Observation Description Date Details (start date - stop date) Never Smoker NA - NA Tobacco Use/Smoking Question Answer Notes Are you a: nonsmoker Additional Findings: Tobacco Non-User Current no n-smoker Alcohol Screen Question Answer Notes Did you have a drink containing alcohol in the p ast year? No Points 0 Interpretation Negative Tobacco use other than smoking: Question Answer Notes Are you an other tobacco user? 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
--- OUTSIDE RECORDS SUMMARY | 2025-01-30 08:22 | XMS_ITS | Clinical Summary ---
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 Name Role Phone Unavailable Primary Care Provider Unavailabl e Allergies No known active allergies Medications No known medications Social History Tobacco Use Types Packs/Day Years Used Date Smoking Tobacco: Never Assessed Sex and Gender Information Value Date Recorded Sex Assigned at Not on file Legal Sex Male 6:30 PM EST Gender Identity Not on file Sexual Orientation Not on file Last Filed Vital Signs Vital Sign Reading Time Taken Comments Blood Pressure - - Pulse 61 01/27/2021 10:49 AM EDT Temperature 36.6 C (97.8 F) 01/27/2021 10:49 AM EDT Respiratory Rate - - Oxygen Saturation 97% [...] Vaccine (1 of 2) 11/21/2019 Influenza Vaccine 12/05/2024 COVID-19 Vaccine (3 - 2024- season) 01/05/202501/2021, 07/16/2020 Insurance NA HMO
== END 2025-01-30 09:22 | disposition home or self-care (01) ==
LOC: HO.HMCHD 08:12
PROVIDERS: PCP Internal Medicine; Visit Provider Physician Assistant
DX: Z00.00 Encounter for general adult medical examination without abnormal findings (principal); E78.5 Hyperlipidemia, unspecified; R22.41 Localized swelling, mass and lump, right lower limb; M54.50 Low back pain, unspecified

== ENCOUNTER → 2025-01-30 08:12 | Outpatient (BNVA) | payer OTHER, SELFPAY | PROVIDERS: PCP Internal Medicine; Visit Provider Physician Assistant | DX: Z00.00 Encounter for general adult medical examination without abnormal findings (principal); E78.5 Hyperlipidemia, unspecified; R22.41 Localized swelling, mass and lump, right lower limb; M54.50 Low back pain, unspecified; M79.671 Pain in right foot; Z13.31 Encounter for screening for depression; Z13.39 Encounter for screening examination for other mental health and behavioral disorders | CPT/HCPCS: 96127 ==